=== PATIENT | male | born 1975 | race Caucasian/White ===

== ENCOUNTER 2020-10-07 12:21 | Emergency (ER) | payer OTHER ==
[~2020-10-07] VITALS: Ht 170.2 cm; Wt 84.1 kg
[2020-10-07 12:38] VITALS: BP 148/75
--- NOTE | 2020-10-07 12:52 | PHYS DOC ---
Past History Past Medical History: Kidney Stones Past Surgical History: Other Additional Past Surgical Histo: lithrotripsy Alcohol Use: None Adult General Chief Complaint Chief Complaint: EARACHE/EAR PAIN HPI HPI Patient is a 44-year-old male presenting for right ear pain. Reports onset of symptoms was early this morning without any known trauma, exposure, sick contacts, travel or other known allergens. Manipulation of external ear makes worse, nothing known makes better. Reports dull pain on right side of his ear that feels deep. Admits drainage that has been cloudy and yellow in appearance that has been intermittent since onset. Denies any changes in hearing. No other known medical issues, no medications on a daily basis Review of Systems Review of Systems Fourteen body systems of review of systems have been reviewed. See HPI for pertinent positives and negative responses, other rose all other systems are negative, non-pertinent or non-contributory Physical Exam Physical Exam Constitutional: Well developed, well nourished, no acute distress, non-toxic appearance. HENT: Normocephalic, atraumatic, comprehensive exam of left ear unremarkable, right external ear painful with manipulation and visible drainage present in middle ear canal, TM on left unremarkable without any acute disease and nonperforated, oropharynx moist, no oral exudates, nose normal. Eyes: PERRLA, EOMI, conjunctiva normal, no discharge. Neck: Normal range of motion, no tenderness, supple, no stridor. Cardiovascular: Heart rate regular per monitor Lungs & Thorax: No respiratory distress or accessory muscle use, bilateral chest rise Abdomen: Abdomen soft, non-tender, bowel sounds present in all quadrants, no guarding or rebound, nonacute abdomen. Skin: Warm, dry, no erythema, no rash. Back: No tenderness, no CVA tenderness. Extremities: No tenderness, no cyanosis, no clubbing, ROM intact, no edema. Neurologic: Alert and oriented X 3, grossly normal motor & sensory function, no focal deficits noted. Psychologic: Affect normal, judgement normal, mood normal. Current Patient Data Vital Signs Vital Signs Date Time Temp Pulse Resp B/P (MAP) Pulse Ox O2 Delivery O2 Flow Rate FiO2 10/07/20 12:38 97.7 58 16 148/75 (99) 100 Room Air EKG EKG [] Radiology/Procedures Radiology/Procedures [] Heart Score C/O Chest Pain: No Risk Factors: Risk Factors: DM, Current or recent (<one month) smoker, HTN, HLP, family history of CAD, obesity. Risk Scores: Risk Factors: DM, Current or recent (<one month) smoker, HTN, HLP, family history of CAD, obesity. Course & Med Decision Making Course & Med Decision Making Discussed with the patient all findings I discussed most likely diagnosis of right otitis externa. I stressed need for antibiotic drops and close outpatient follow-up to review today's ER visit. Strict return precautions were also discussed at length with good understanding by patient. Patient voiced understanding and agreement with the plan. Patient knows to come back for repeat evaluation if concerning signs or symptoms present prior to outpatient follow- up. Hemodynamically stable, ambulatory and well-appearing at time of disposition. Dragon Disclaimer Dragon Disclaimer This electronic medical record was generated, in whole or in part, using a voice recognition dictation system. Departure Departure: Impression: Primary Impression: Otitis externa of right ear Disposition: HOME / SELF CARE / HOMELESS Condition: STABLE Referrals: PCP,ABUNDIO (PCP) Patient Instructions: Otitis Externa Additional Instructions: You were evaluated today for ear pain. Your physical exam suggests that you have an external ear infection otherwise known as otitis externa. Please take the antibiotics in full as directed. You should use these antibiotic drops 3 times a day for 7 days Please use ear odell at night for the first three nights. It really helps with comfort and making sure the ear canal stays exposed to the antibiotic for a long time. Be aware it takes 24-36 hours to start feeling better, and often takes a week to clear up. Please follow up with your primary care physician as needed. If you do not have a primary doctor, you can call your insurance company to find one. If you do not have insurance, you can go to the finance/registration department for more assistance. SANAM GUTIERREZ DO Oct 07, 2020 12:52
[2020-10-07] MEDS ORDERED: NEOMYCIN/POLYMYXIN/HC OTIC SUSPENSION 10ML BOTTLE. ONE (12:53)
[2020-10-07] MEDS ORDERED: NEOMYCIN/POLYMYXIN/HC OTIC SUSPENSION 10ML BOTTLE. AD ONE (13:00)
== END 2020-10-07 13:01 | disposition home or self-care (01) ==
LOC: ER 12:21
DX: H60.91 Unspecified otitis externa, right ear (principal); Z87.442 Personal history of urinary calculi
CPT/HCPCS: 99283

== ENCOUNTER 2020-10-09 13:56 | Emergency (ER) | payer OTHER ==
[~2020-10-09] VITALS: Ht 170.2 cm; Wt 84.1 kg
[2020-10-09 14:04] VITALS: BP 149/79
[2020-10-09] MEDS ORDERED: HYDROcodone/APAP 5/325MG 1 TAB TABLET PO ONE (14:30)
--- NOTE | 2020-10-09 14:47 | PHYS DOC ---
Past History Past Medical History: Kidney Stones (RUIZ PARRY APRN) Past Surgical History: Other Additional Past Surgical Histo: lithrotripsy (RUIZ PARRY APRN) Alcohol Use: None (RUIZ PARRY APRN) General Adult EDM: Chief Complaint: EARACHE/EAR PAIN HPI: HPI: Patient is a 44-year-old male presents with right ear pain. Patient was seen in the emergency room on and diagnosed with otitis externa. Patient was given antibiotic drops. Patient states that he has not been using an ear wick and does not think that the drops have been going in since . Patient reports pain is worse with touching of the ear. Patient states that he did take some naproxen which helped relieve some of the pain. Patient denies any external drainage or fevers. (RUIZ PARRY APRN) Review of Systems: Review of Systems: Constitutional: Denies fever or chills Eyes: Denies change in visual acuity HENT: Reports internal and external right-sided ear pain Respiratory: Denies cough or shortness of breath Cardiovascular: Denies chest pain or edema GI: Denies abdominal pain, nausea, vomiting, bloody stools or diarrhea : Denies dysuria Musculoskeletal: Denies back pain or joint pain Integument: Denies rash Neurologic: Denies headache, focal weakness or sensory changes Endocrine: Denies polyuria or polydipsia Lymphatic: Denies swollen glands Psychiatric: Denies depression or anxiety (RUIZ PARRY APRN) Current Medications: Current Meds: Current Medications Medications (Trade) Dose Ordered Sig/Diane Start Time Stop Time Status Last Admin Dose Admin Acetaminophen/ Hydrocodone Bitart (Lortab 5/325) 1 tab 1X ONCE 10/09/20 14:30 10/09/20 14:31 UNV (RUIZ PARRY APRN) Allergies: Allergies: Allergies Coded Allergies Type Severity Reaction Last Updated Verified No Known Drug Allergies 10/07/20 No (RUIZ PARRY APRN) Physical Exam: PE: Constitutional: Well developed, well nourished, no acute distress, non-toxic zak earance. [] HENT: Normocephalic, atraumatic, right external ear painful with manipulation and visible drainage present in middle ear canal, TM on left unremarkable without any acute disease and nonperforated. Eyes: PERRLA, EOMI, conjunctiva normal, no discharge. [] Neck: Normal range of motion, no tenderness, supple, no stridor. [] Cardiovascular:Heart rate regular rhythm, no murmur [] Lungs & Thorax: Bilateral breath sounds clear to auscultation [] Abdomen: Bowel sounds normal, soft, no tenderness, no masses, no pulsatile masses. [] Skin: Warm, dry, no erythema, no rash. [] Back: No tenderness, no CVA tenderness. [] Extremities: No tenderness, no cyanosis, no clubbing, ROM intact, no edema. [] Neurologic: Alert and oriented X 3, normal motor function, normal sensory function, no focal deficits noted. [] Psychologic: Affect normal, judgement normal, mood normal. [] (RUIZ PARRY APRN) Current Patient Data: Vital Signs: Vital Signs Date Time Temp Pulse Resp B/P (MAP) Pulse Ox O2 Delivery O2 Flow Rate FiO2 10/09/20 14:04 98.2 57 16 149/79 (102) 100 Room Air (RUIZ PARRY APRN) EKG: EKG: [] (RUIZ PARRY APRN) Radiology/Procedures: Radiology/Procedures: [] (RUIZ PARRY APRN) Heart Score: C/O Chest Pain: No Risk Factors: Risk Factors: DM, Current or recent (<one month) smoker, HTN, HLP, family history of CAD, obesity. Risk Scores: Score 0 - 3: 2.5% MACE over next 6 weeks - Discharge Home Score 4 - 6: 20.3% MACE over next 6 weeks - Admit for Clinical Observation Score 7 - 10: 72.7% MACE over next 6 weeks - Early Invasive Strategies (RUIZ PARRY APRN) Course & Med Decision Making: Course & Med Decision Making Pertinent Labs and Imaging studies reviewed. (See chart for details) Discussed with the patient all findings I discussed most likely diagnosis of rig ht otitis externa. I stressed need for antibiotic drops and close outpatient follow-up to review today's ER visit. Strict return precautions were also discussed at length with good understanding by patient. Patient voiced understanding and agreement with the plan. Patient knows to come back for repeat evaluation if concerning signs or symptoms present prior to outpatient follow-up. Hemodynamically stable, ambulatory and well-appearing at time of disposition. (RUIZ PARRY APRN) Course & Med Decision Making I oversaw on the above date of service of this patient. This patient was evaluated, examined, treated, and dispositioned from the emergency department by the mid-level practitioner. I reviewed note and agree to findings, plan of care, and disposition as stated. Electronically signed, Sanam Gutierrez DO (SANAM GUTIERREZ DO) Cal Disclaimer: Dr[place]vatore Disclaimer: This electronic medical record was generated, in whole or in part, using a voice recognition dictation system. (RUIZ PARRY APRN) Departure Departure: Impression: Primary Impression: Otitis externa Qualified Codes: H60.501 - Unspecified acute noninfective otitis externa, right ear Disposition: HOME / SELF CARE / HOMELESS Condition: STABLE Referrals: PCP,NO (PCP) Patient Instructions: Otitis Externa, [id number] Additional Instructions: You were evaluated today for ear pain. Your physical exam suggests that you have an external ear infection otherwise known as otitis externa. Please take the antibiotics in full as directed. You should use these antibiotic drops 3 times a day for 7 days Please use ear odell at night for the first three nights. It really helps with comfort and making sure the ear canal stays exposed to the antibiotic for a long time. Be aware it takes 24-36 hours to start feeling better, and often takes a week to clear up. Please follow up with your primary care physician as needed. If you do not have a primary doctor, you can call your insurance company to find one. If you do not have insurance, you can go to the finance/registration department for more assistance. EMERGENCY DEPARTMENT GENERAL DISCHARGE INSTRUCTIONS Thank you for coming to [facility] (ED) today and trusting us with you care. We trust that you had a positivie experience in our Emergency Department. If you wish to speak to the department management, you may call the director at [phone]. YOUR FOLLOW UP INSTRUCTIONS ARE FOLLOWS: 1. Do you have a private Doctor? If you do not have a private doctor, please ask for a resource list of physicians or clinics that may be able to assist you with follow up care. 2. The Emergency Physician has interpreted your x-rays. The X-Ray specialist will also review them. If there is a change in the findings, you will be notified in 48 hours when at all possible. 3. A lab test or culture has been done, your results will be reviewed and you will be notified if you need a change in treatment. ADDITIONAL INSTRUCTIONS AND INFORMATION: 1. Your care today has been supervised by a physician who is specially trained in emergency care. Many problems require more than one evaluation for a complete diagnosis and treatment. We recommend that you schedule your follow up appointment as recommended to ensure complete treatment of you illness or injury. If you are unable to obtain follow up care and continue to have a problem, or if your condition worsens, we recommend that you return to the ED. 2. We are not able to safely determine your condition over the phone nor are we able to give sound medical advice over the phone. For these safety reasons, if you call for medical advice we will ask you to come to the ED for further evaluation. 3. If you have any questions regarding these discharge instructions please call the ED at [phone]. SAFETY INFORMATION: In the interest of safety, wellness, and injury prevention; we encourage you to wear your sealbelt, if you smoke; quite smoking, and we encourage family to use a protective helmet for bicycling and other sporting events that present an increased risk for head injury. IF YOUR SYMPTOMS WORSEN OR NEW SYMPTOMS DEVELOP, OR YOU HAVE CONCERNS ABOUT YOUR CONDITION; OR IF YOUR CONDITION WORSENS WHILE YOU ARE WAITING FOR YOUR FOLLOW UP APPOINTMENT; EITHER CONTACT YOUR PRIMARY CARE DOCTOR, THE PHYSICIAN WHOSE NAME AND NUMBER YOU WERE GIVEN, OR RETURN TO THE ED IMMEDIATELY. Scripts Hydrocodone Bit/Acetaminophen (HYDROCODONE-APAP 5-325 ) 1 Each Tablet 1 TAB PO PRN Q6HRS PRN for PAIN for 3 Days, #12 TAB 0 Refills Prov: RUIZ PARRY APRN 10/09/20 RUIZ PARRY APRN Oct 09, 2020 14:47 SANAM GUTIERREZ DO Oct 10, 2020 07:17
[2020-10-09] MEDS ORDERED: HYDR-2155 PO (14:52)
== END 2020-10-09 15:08 | disposition home or self-care (01) ==
LOC: ER 13:56
DX: H60.91 Unspecified otitis externa, right ear (principal); Z87.442 Personal history of urinary calculi
CPT/HCPCS: 99283